=== PATIENT | male | born 1990 | race Caucasian/White ===

== ENCOUNTER 2020-11-01 13:05 | Outpatient (REF) | payer OTHER, SELFPAY | END 2020-11-01 13:06 | disposition home or self-care (01) | LOC: HO.LAB 13:05 | PROVIDERS: PCP Physician Assistant; Visit Provider Internal Medicine | DX: Z20.822 Contact with and (suspected) exposure to COVID-19 (principal) | CPT/HCPCS: 36415; C9803; U0003 ==

== ENCOUNTER 2020-12-24 11:06 | Outpatient (REF) | payer OTHER, SELFPAY | END 2020-12-24 11:07 | disposition home or self-care (01) | LOC: HO.LAB 11:06 | PROVIDERS: Visit Provider Internal Medicine | DX: Z20.822 Contact with and (suspected) exposure to COVID-19 (principal) | CPT/HCPCS: 36415; C9803; U0003; U0005 ==

== ENCOUNTER 2021-02-01 10:31 | Outpatient (REF) | payer OTHER, SELFPAY ==
[2021-02-01 11:49] LABS: COVID-19 Test Negative (Negative)
== END 2021-02-01 10:32 | disposition home or self-care (01) ==
LOC: HO.LAB 10:31
PROVIDERS: Visit Provider Internal Medicine
DX: Z20.822 Contact with and (suspected) exposure to COVID-19 (principal)
CPT/HCPCS: 36415; 87635; C9803

== ENCOUNTER 2021-06-03 23:11 | Inpatient (IN) | payer OTHER, SELFPAY ==
[2021-06-03 23:58] VITALS: BMI 26.4
[2021-06-04] VITALS: BP 135/72; PULSE 62; RESP 21; TEMP 36.3; O2SAT 100
--- NOTE | 2021-06-04 | ECG_ITS ---
Test Reason : QTC PROLONG MEDS Blood Pressure : / mmHG Vent. Rate : 054 BPM Atrial Rate : 054 BPM P-R Int : 120 ms QRS Dur : 086 ms QT Int : 414 ms P-R-T Axes : 023 070 022 degrees QTc Int : 392 ms Sinus bradycardia Otherwise normal ECG No previous ECGs available Referred By: Cassi Cline Electronically Signed By:KRISTAL KELLY
[2021-06-04 00:02] VITALS: BMI 25.6
[2021-06-04] MEDS: Melatonin 3 MG TABLET 6 MG PO ×2 (00:41→22:00)
[2021-06-04] MEDS: traZODone HCL 50 MG TABLET PO ×2 (00:41→22:00)
[2021-06-04 00:45] VITALS: BP 115/59; PULSE 50; RESP 18; TEMP 37.1; O2SAT 100
[2021-06-04 00:47] VITALS: BP 115/59; PULSE 50
[2021-06-04] MEDS: cloNIDine HCL 0.1 MG TABLET PO ×2 (00:47→14:06)
--- NOTE | 2021-06-04 01:39 | PC.ADMIT ---
Pt. admitted to [facility] at 0000 on 06/04/2021 from [facility]. Pt. signed a CV. Pt. admitted with a diagnosis of Major Depressive Disorder. Pt. reports he is here to get help with opiate addiction. Pt. was prescribed painkillers following left ACL surgery in 2019. Pt. continued buying percocet on the street after prescription was finished. Pt. reports he would like to stop taking the medication. He has attended the suboxone clinic at [facility] but reports he does not wish to go on suboxone again. Pt. presented with mildly anxious mood and affect. He was calm and cooperative throughout admission. Pt. reported positive s/sx of withdrawal including restlessness, mild diaphoresis and generalized body aches. Pt. denied nausea but reports vomiting in the ER. Pt. medicated with clonidine, trazodone and melatonin. Pt. denied SI, HI, AH and VH. Pt. does not have any acute or chronic medical issues. He does not follow with outpatient psychiatric providers. Pt. contracts for safety. He is resting quietly in his room.
[2021-06-04] MEDS: Ondansetron ODT 4 MG TAB.RAPDIS TRANSLINGU ×2 (02:15→12:30)
[2021-06-04] MEDS: Magnesium Hydrox/Alum Hydrox 30 ML ORAL.SUSP PO ×2 (04:41→12:28)
[2021-06-04] MEDS: LORazepam 1 MG TABLET PO ×3 (04:41→14:06)
[2021-06-04 05:02] VITALS: BP 147/79; PULSE 66; RESP 16; TEMP 35.8; O2SAT 99
--- NOTE | 2021-06-04 12:02 | P.HPPS_ITS ---
HPI Chief Complaint: Major Depressive D/O Sources of Information: patient interviewed, chart reviewed and crisis/core team assessment reviewed HPI Subjective Notes: Small Warning and Conditional Voluntary Narrative: Pt is a 31 yo male with hx of intermittent substance abuse which evolved into prescription pain medication addiction and resulted in depression and Si who presents for worsening depression and SI. Pt reports that prior to October 2019, he was w/out hx of anxiety or depression. He abused cocaine and alcohol and sometimes prescription pain medications, but this was intermittent and never daily. He had ACL surgery in Oct 2019 and was prescribed percocet which he admits to over using, enjoying the calm, peaceful feeling it bestowed. Pt's script was stopped in jun 2020 and he went into withdraw, unable to sleep, eat, or work due to becoming nauseus, sweating, vomiting and with diarrhea. Pt thus bought Oxy from the street. Over the next year his addiction grew and he often outspent his paycheck buying pills. Pt had to get 2nd and 3rd jobs in [employer] to pay rent and hid his addiction from his . This constant chasing after pills, hiding and lying, working exhausting hours birthed a depression that grew over the subsequent months. Pt would sometimes not be able to buy his children a happy meal needing the extra $4 for drug money. He started feeling anxious, worried about all the people he now owed, falling deeper into debt again to fuel his drug habit. Pt felt guilty, had trouble sleeping, concentrating, low motivation, low energy and eventually on/off passive SI. This past week his depressed feelings increased and for the first time he felt there was no way out and SI increased, to point of considering making a plan (did not graduate to intent). Ultimately his kids were a powerful protective factor and SI resolved. His mother found him sleeping in his car, suspecting he'd become addicted to drugs, and brought him to [facility] where she works. Patient reports all SI remains resolved and he knows he will never hurt himself. He is eager to stay sober and is grateful that he no longer has to hide his addiction from family who is supportive. Pt has chronic back pain that triggers desire for pain meds and he would like to get back on Suboxone. Pt was once on it for 2 weeks by PCP (still hiding this from ) but said it made him nauseus since he always swallowed the saliva that accumlated. Needle Molder explained how to take suboxone and to spit out saliva buildup after 15 minutes. Needle Molder also discussed the need to get into a supportive environment such as AA/NA and how other casual drug and alcohol use will likely always lead back to addiction. Discussed insomnia and pt would like to tray trazodone (inspector automatic typewriter informed of risks/side-effects). Pt does not want medication for depression or anxiety saying it's fully resolved now that addiction is being dealt with. Pt denies hx of sofy and denies hx of trauma. 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 Substance History: etoh, cocaine, oxy on/off for years; never daily until percocet' Trauma History: denies Diagnostics Vital Signs (24Hr): Vital Signs - 24 hr 06/04/21 00:00 06/04/21 00:45 06/04/21 00:47 Temperature 97.4 F 98.7 F Pulse Rate 62 50 50 Respiratory Rate 21 H 18 Blood Pressure 135/72 115/59 L 115/59 L Pulse Oximetry 100 100 06/04/21 05:02 Temperature 96.4 F L Pulse Rate 66 Respiratory Rate 16 Blood Pressure 147/79 H Pulse Oximetry 99 Body Mass Index 25.6 Meds/Allergies Allergies Allergies Allergy/AdvReac Type Severity Reaction Status Date / Time No Known Allergies Allergy Verified 06/03/21 23:58 Mental Status Exam Mental Status Exam Patient Appearance: Well Grooomed and Appropriate Patient Orientation: Person, Place, Time and Situation Level of Consciousness: Awake and Appropriate Patient Behavior: Appropriate, Cooperative and Good Eye Contact Mood Description: Calm Affect Description: Calm Patient Cognition Impaired: No Ability to Follow Directions: Good Speech Pattern: Clear and Appropriate Memory Description: Intact Hallucinations: None Delusions: Not Present Thought Process: Intact, Goal Oriented and Linear Thought Content: positive for Intact and positive for Logical Judgement: Fair Assessment & Plan Assessment & Plan (1) MDD (major depressive disorder), recurrent episode, moderate: Status: Acute Code(s): F33.1 - Major depressive disorder, recurrent, moderate (2) Cocaine abuse: Status: Acute Code(s): F14.10 - Cocaine abuse, uncomplicated (3) Alcohol abuse: Status: Acute Code(s): F10.10 - Alcohol abuse, uncomplicated Assessment and Plan: impression: Pt is a 31 yo male with hx of intermittent substance abuse which evolved into prescription pain medication addiction and resulted in depression and Si who presents for worsening depression and SI.? depression has abated and pt is in good mood, future oriented, relieved to be open about addiction and optimistic about recover all SI resolved and remains so; he denies any hx of self harm pt reports w/drawal nearly over; he wants to get on suboxone for addiction and pain management. He does not want meds for anxiety/depression saying it was fueled by addiction and is now resolved pt hopes for quick discharge saying he needs to get back to work plan: cv q15 minm checks start suboxone 2mg; will give another 2 if tolerates referall to subxone clinic trazodone for sleep Reason for continued inpatient stay Substantial Risk for: stable for discharge
[2021-06-04] MEDS: Milk of Magnesia 30 ML ORAL.SUSP PO (12:28)
--- NOTE | 2021-06-04 12:46 | PC.NURSE ---
Patient experiencing nausea and vomiting due to withdrawal for opioids. Patient states he is doing better now on day 3 . Medicated for nausea and vomiting. Pt states he responds well to MOM and Odansetron. Resting comfortably in bed at the present time.
[2021-06-04 14:06] VITALS: BP 111/62; PULSE 66
[2021-06-04] MEDS: Buprenorphine/Naloxone 2/0.5mg FILM 1 FILM SUBLINGUAL ×2 (16:47→19:52)
[2021-06-04 21:10] VITALS: BP 114/76; PULSE 59; TEMP 36.6
[2021-06-04] MEDS: hydrOXYzine HCL 25 MG TABLET 50 MG PO (22:01)
[2021-06-05 06:31] VITALS: BP 151/85; PULSE 86; RESP 16; O2SAT 100
--- NOTE | 2021-06-05 12:55 | P.CNHOSGPS_ITS ---
History of Present Illness Data of Consult Service Date: 06/05/21 Primary Care Provider: Unknown Physician HPI Reason for consult: medical evaluation 31 year old male with no past medical history who is presently admitted to inpatient Psych for opioid dependence and depression. 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 He says he feels much better and think he's ready to go home. Review of Systems Review of Systems: Gen: no fever Resp: no sob, no cough CV: no chest, no HERNANDEZ, no leg edema GI: No n/v, no abd pain Neuro: No confusion Yes all other systems are reviewed and are negative [facility] Medical History (Updated 06/05/21 @ 13:07 by Shaquille Brar MD) Opioid dependence Social History Household Members: Spouse, Family and Children Housing: House Do you presently have visiting nurse or other home services: No Patient Tobacco Use Status: Current everyday Tobacco user Tobacco use type: Cigarette Cigarette Packs Per Day: 1 Cigarettes Per Day: 20.0 Years Smoked: 18 Smoked in Last 30 Days: Yes e-Cigarette/Vaping Use: Never Used Patient Interested in Nicotine Replacement: Yes Patient Given Instructions on How to Stop Smoking: Yes Date Education Initiated: 06/04/21 Second Hand Smoke Exposure: No Use of substances other than those prescribed or required for medical reasons: Yes Substance Use Type: Opiates and Painkillers Substance Use Frequency: Chronic Longstanding Last Used Substance: Days (ago) Currently Displaying Signs/Symptoms of Drug Intoxication Withdrawal: No Any prior treatment program specific to substance use: Yes (Pt. has participated briefly in outpatient program and suboxone clinic.) Have you been hit, kicked, punched, or otherwise hurt by someone within the past year? If so, by whom?: No Do you feel safe in your current relationship?: Yes Is there a partner from a previous relationship who is making you feel unsafe now?: No Are you made to feel afraid or neglected: No Advance Directives: No Advance Directives Information Provided: Yes Advance Directives on File: No Do you have thoughts of harming others: None Do you have a plan to hurt others: No Plan Recently lost weight without trying: No Eating poorly because of decreased appetite: No Nutrition Risks: No Nutritional Risk Poor oral hygiene: No service: No Sexual orientation: Straight/Heterosexual Meds Allergies Allergy/AdvReac Type Severity Reaction Status Date / Time No Known Allergies Allergy Verified 06/03/21 23:58 Active Medications: Current Medications Generic Name Dose Route Start Last Admin Trade Name Freq PRN Reason Stop Dose Admin Acetaminophen 650 mg 06/03/21 23:58 Acetaminophen 325 Mg Tablet PO Q6H PRN Headache/Pain Mild Scale (1-3) Al Hydroxide/Mg Hydroxide 30 ml 06/03/21 23:58 06/04/21 12:28 Magnesium Hydrox/Alum Hydrox 30 Ml Oral.Susp PO 30 ml Q6H PRN Administration Heartburn/Nausea Clonidine HCl 0.1 mg 06/04/21 00:10 06/04/21 14:06 Clonidine Hcl 0.1 Mg Tablet PO 0.1 mg TID PRN Administration Opiate Withdrawal Protocol Hydroxyzine HCl 50 mg 06/04/21 00:14 06/04/21 22:01 Hydroxyzine Hcl 25 Mg Tablet PO 50 mg BEDTIME PRN Administration Anxiety Loperamide HCl 2 mg 06/04/21 14:54 Loperamide Hcl 2 Mg Capsule PO Q4H PRN Loose Stool Magnesium Hydroxide 30 ml 06/03/21 23:58 06/04/21 12:28 Milk Of Magnesia 30 Ml Oral.Susp PO 30 ml DAILY PRN Administration Constipation Melatonin 6 mg 06/04/21 21:00 06/04/21 22:00 Melatonin 3 Mg Tablet PO 6 mg BEDTIME EDMUND Administration Nicotine 21 mg 06/04/21 09:00 06/05/21 08:30 Nicotine 21 Mg Patch.Td24 TRANSDERMA Not Given DAILY EDMUND Nicotine Polacrilex 4 mg 06/04/21 00:10 Nicotine Polacrilex 2 Mg Gum BUCCAL Q2H PRN Nicotine Cravings Ondansetron HCl 4 mg 06/04/21 00:10 06/04/21 12:30 Ondansetron Odt 4 Mg Tab.Rapdis TRANSLINGU 4 mg Q6H PRN Administration Nausea Trazodone HCl 50 mg 06/03/21 23:58 06/04/21 22:00 Trazodone Hcl 50 Mg Tablet PO 50 mg BEDTIME PRN Administration Insomnia Home Medications Medication Instructions Recorded Confirmed Last Taken Type No Known Home Meds 06/04/21 06/04/21 Unknown History Assessment and Plan (1) Opioid dependence: Status: Acute 31 year old male with opioid dependence... no active med issues. Continue ongoing. Physical Exam Vital Signs: Last Vital Signs Temp 97.9 F 06/04/21 21:10 Pulse 86 06/05/21 06:31 Resp 16 06/05/21 06:31 BP 151/85 H 06/05/21 06:31 Pulse Ox 100 06/05/21 06:31 Body Mass Index 25.6 Constitutional Awake and Alert, No apparent distress HEENT anicteric Neck Supple, No lymphadenopathy Cardiovascular RRR, No M/R/G, S1 S2, No S3 S4, No pedal edema Respiratory Lungs clear, No respiratory distress Gastrointestinal Non tender, Non-distended Skin No rash Neurological Alert & oriented x3 Psychological Appropriate affect Neuro Cranial nerves: Yes CN's II-XII intact bilaterally
--- NOTE | 2021-06-05 14:28 | P.DS_ITS ---
DS: Providers Provider Date of Service: 06/05/21 Date of admission: 06/03/21 23:11 Date of discharge: 06/05/21 Primary care physician: Unknown Physician Attending physician on admission: Ellis Macario Consults: 06/03/21 23:58 Consult to Hospitalist Routine Consulting Provider: Hospitalist Reason For Exam: new admission Attending physician on discharge: Ellis Macario DS: Diagnosis Discharge Diagnosis (1) MDD (major depressive disorder), recurrent episode, moderate: Status: Acute (2) Opioid dependence: Status: Acute (3) Cocaine abuse: Status: Acute (4) Alcohol abuse: Status: Acute DS: Medications Discharge Medications Home Medications: Home Medications Medication Instructions Recorded Confirmed No Known Home Meds 06/04/21 06/04/21 Mental Status Exam Mental Status Exam Narrative: Patient Appearance:?Well Grooomed and Appropriate Patient Orientation:?Person, Place, Time and Situation Level of Consciousness:?Awake and Appropriate Patient Behavior:?Appropriate, Cooperative and Good Eye Contact Mood Description:? good Affect Description:?Calm, congruent Patient Cognition Impaired:?No Ability to Follow Directions:?Good Speech Pattern:?Clear and Appropriate Memory Description:?Intact Hallucinations:?None Delusions:?Not Present Thought Process:?Intact, Goal Oriented and Linear Thought Content:?positive for Intact and positive for Logical Judgement:?Fair DS: Summary Hospital Course Hospital Course: Pt is a 31 yo male with hx of intermittent substance abuse which evolved into prescription pain medication addiction and resulted in depression and Si who presents for worsening depression and SI.? On admission, depression had fully resolved and pt was in good mood, future oriented, relieved to be open about addiction and optimistic about recovery all SI had resolved and remained so; he denies any hx of self harm pt reports w/drawal complete and he wants to get on suboxone for addiction and pain management and has intake tomorrow. He does not want meds for anxiety/depression saying it was fueled by addiction and is now resolved. Pt's mother visited unit and is supportive. He is returning to his supportive and children and is future oriented getting back to work to support his family and planning to pursue tx as an outpt. He is in good mood and reports SI fully resolved. While patient is vulnerable to relapse and seems to minimize the risks, thinking himself strong enough to stay sober, pt is not in imminent risk for harm to self or others and does not require inpatient admission for treatment which is appropriate to be continued as an outpatient. Pt's request for discharge honored. Time spent discussing smoking cessation with patient: 3 to 10 minutes Status at Discharge Functional status at discharge: independent ambulation Overall status at discharge: patient is back to baseline Time Spent with Patient Time attestation: Total time spent providing and/or coordinating discharge services: Discharge Plan Discharge Patient Disposition: Home, Self-Care Discharge Diagnosis: Mdd, recurrent, moderate in full remission Referrals: [facility] [Other] - 06/10/21 1:30 pm ([facility] Counselor (Frida Reagan)) [facility] [Other] - 06/06/21 1:00 pm (Initial evaluation for MAT (suboxone)) Discharge Medications: New trazodone 50 mg Tablet 50 mg PO BEDTIME PRN (Reason: Insomnia) 30 Days Qty: 30 RF: 0 Discharge Orders: Discharge Order (Routine); Ordered 06/05/21 Ordered By: Ellis Macario Diet: regular diet Activity on Discharge: As tolerated Stand Alone Forms: Patient Portal Discharge page, Community Support Care Plan Goals: Maintain mood and safe behaviors Continue to pursue sobriety Practice coping skills Continue with outpatient providers and reach out to them as needed Health Concerns: Mood stability and behaviors Substance abuse Chronic Back pain Plan of Treatment: Follow up with your PCP and psychiatric provider regarding above concerns Follow up with Suboxone clinic Assessment: Risk assessment at time of discharge: Patient was interviewed prior to discharge and found to be fully oriented and without any SI or HI. Patient has insight and demonstrates good judgment in terms of wanting to pursue treatment. Patient is not in imminent risk of harm to self or others and has a safety plan that includes presenting to the closest ER or calling 911 if feeling unsafe. Patient has been observed closely by nursing and unit staff throughout admission; patient has not engaged in any behaviors that suggest dangerousness to self or others and has demonstrated appropriate behaviors and impulse control. Discharge Date/Time: 06/05/21 15:23
== END 2021-06-05 15:23 | disposition home or self-care (01) | DRG 751 ==
PROVIDERS: Admitting Provider Psychiatry & Neurology Psychiatry; Visit Provider Psychiatry & Neurology Psychiatry
DX: F33.1 Major depressive disorder, recurrent, moderate (principal); R45.851 Suicidal ideations; F11.20 Opioid dependence, uncomplicated; F10.10 Alcohol abuse, uncomplicated; F14.10 Cocaine abuse, uncomplicated; F17.210 Nicotine dependence, cigarettes, uncomplicated; Z71.6 Tobacco abuse counseling
CPT/HCPCS: 93005

== ENCOUNTER → 2021-06-06 13:02 | Outpatient (BNVA) | payer OTHER, SELFPAY | PROVIDERS: Visit Provider Nurse Practitioner Psychiatric/Mental Health | DX: F11.20 Opioid dependence, uncomplicated (principal); Z51.81 Encounter for therapeutic drug level monitoring; Z79.899 Other long term (current) drug therapy | CPT/HCPCS: 80305 ==

== ENCOUNTER 2021-06-13 14:39 | Outpatient (REF) | payer OTHER, SELFPAY ==
[2021-06-13 16:24] LABS: Fentanyl, urine POSITIVE (Not Detect)
[2021-06-16 08:14] LABS: Buprenorphine 3
[2021-06-16 08:16] LABS: Norbuprenorphine 14
[2021-06-16 08:17] LABS: Naloxone NEGATIVE
== END 2021-06-13 14:40 | disposition home or self-care (01) ==
LOC: HO.LAB 14:39
PROVIDERS: PCP Physician Assistant; Visit Provider Nurse Practitioner Psychiatric/Mental Health
DX: F11.99 Opioid use, unspecified with unspecified opioid-induced disorder (principal); Z79.899 Other long term (current) drug therapy
CPT/HCPCS: 80305; 80307; 80348; 80362

== ENCOUNTER → 2021-06-20 14:28 | Outpatient (BNVA) | payer OTHER, SELFPAY | PROVIDERS: Visit Provider Nurse Practitioner Psychiatric/Mental Health | DX: F11.99 Opioid use, unspecified with unspecified opioid-induced disorder (principal); F10.20 Alcohol dependence, uncomplicated; F14.10 Cocaine abuse, uncomplicated; F33.1 Major depressive disorder, recurrent, moderate; F17.210 Nicotine dependence, cigarettes, uncomplicated; Z51.81 Encounter for therapeutic drug level monitoring | CPT/HCPCS: 80305 ==

== ENCOUNTER 2023-04-16 13:32 | Outpatient (REF) | payer MEDICAID, SELFPAY ==
--- NOTE | ~2023-04-16 | XR_ITS ---
EXAMINATION: XR KNEE, RIGHT CLINICAL INFORMATION: Pain. COMPARISON: None available. TECHNIQUE: AP, lateral and tunnel views of the right knee. FINDINGS: No fracture or joint effusion. Alignment is anatomic. Joint spaces are maintained. No abnormal soft tissue calcification. XR/XR knee LT 3V IMPRESSION: Normal right knee. EXAMINATION: XR KNEE, LEFT CLINICAL INFORMATION: Pain. COMPARISON: None available. TECHNIQUE: AP, lateral and tunnel views of the left knee. FINDINGS: There has been a prior ACL repair. No fracture or dislocation. There is a small to moderate joint effusion. Alignment is anatomic. Joint spaces are maintained. There are degenerative calcifications of the quadriceps tendon. IMPRESSION: 1. No fracture or dislocation is seen. 2. There is a small to moderate joint effusion. 3. There has been a prior ACL repair.
--- NOTE | ~2023-04-16 | XR_ITS ---
EXAMINATION: XR LUMBOSACRAL SPINE WITH OBLIQUES CLINICAL INFORMATION: Chronic lower back pain. COMPARISON: None available. TECHNIQUE: AP, both oblique, and lateral views of the lumbar spine. Lateral view of the lumbosacral junction. FINDINGS: Vertebral body heights and alignment are normal. At L4-L5, there is moderate disc space narrowing, with vacuum phenomenon. At L5-S1, there is marked disc space narrowing, with vacuum phenomenon. There is anterior spondylosis at L4-L5 and L5-S1. No acute fracture or spondylolisthesis is seen. The posterior elements are intact. There is bilateral facet arthropathy at L5-S1. The paravertebral soft tissues are unremarkable. XR/XR lumbar spine 4V min IMPRESSION: 1. There is moderate degenerative disc disease at L4-L5, and marked degenerative disc disease is seen at L5-S1. 2. There is anterior spondylosis at L4-L5 and L5-S1. 3. There is bilateral facet arthropathy at L5-S1.
--- NOTE | ~2023-04-16 | XR_ITS ---
EXAMINATION: XR KNEE, RIGHT CLINICAL INFORMATION: Pain. COMPARISON: None available. TECHNIQUE: AP, lateral and tunnel views of the right knee. FINDINGS: No fracture or joint effusion. Alignment is anatomic. Joint spaces are maintained. No abnormal soft tissue calcification. XR/XR knee RT 3V IMPRESSION: Normal right knee. EXAMINATION: XR KNEE, LEFT CLINICAL INFORMATION: Pain. COMPARISON: None available. TECHNIQUE: AP, lateral and tunnel views of the left knee. FINDINGS: There has been a prior ACL repair. No fracture or dislocation. There is a small to moderate joint effusion. Alignment is anatomic. Joint spaces are maintained. There are degenerative calcifications of the quadriceps tendon. IMPRESSION: 1. No fracture or dislocation is seen. 2. There is a small to moderate joint effusion. 3. There has been a prior ACL repair.
== END 2023-04-16 13:33 | disposition home or self-care (01) ==
LOC: HO.HHCX 13:32
PROVIDERS: Visit Provider Family Medicine
DX: M25.561 Pain in right knee (principal); M25.562 Pain in left knee; M54.9 Dorsalgia, unspecified
CPT/HCPCS: 72110; 73562

== ENCOUNTER 2023-05-21 11:58 | Outpatient (REF) | payer MEDICAID, SELFPAY ==
[2023-05-21 14:47] LABS: Alanine Aminotransferase 22 U/L (0-40); Albumin Level 4.5 g/dL (3.5-5.0); Alkaline Phosphatase 101 U/L (39-117); Anion Gap 16 (12-20); Aspartate Amino Transferase 54 U/L (5-37); Bilirubin Total 0.4 mg/dL (0.0-1.0); Blood Urea Nitrogen 21 mg/dL (9-16); Carbon Dioxide 23 mmol/L (22-29); Chloride 106 mmol/L (96-108); Estimated Glomerular Filt Rate > 60; Glucose Random 80 mg/dL (60-115); Potassium 4.1 mmol/L (3.3-5.1); Sodium 141 mmol/L (135-145); Total Protein 7.8 g/dL (6.5-8.0)
[2023-05-21 14:49] LABS: Cholesterol 138 mg/dL; HDL Cholesterol 42 mg/dL; LDL Cholesterol Calculated 84 mg/dl; Triglycerides 61 mg/dL
[2023-05-21 18:09] LABS: CT PCR NOT DETECTED (Not Detect.); NG PCR NOT DETECTED (Not Detect.)
[2023-05-21 21:35] LABS: Reflex LDLD? No
[2023-05-22 05:08] LABS: Syphilis Screen Nonreactive (Nonreactive)
[2023-05-22 05:37] LABS: HBS Num1 297.36 mIU/mL (0-7.99); HBc Num1 0.08 S/CO (0.00-0.79); HBsAGNum1 0.42 S/CO (0.00-0.99); HIV AB/AG Nonreactive (Nonreactive); HIV Num 1 0.05 S/CO (0.00-0.99); Hepatitis B Core Antibody Nonreactive (Nonreactive); Hepatitis B Surface Antigen Negative (Negative); ~Hepatitis B Surface Antibody REACTIVE (Nonreactive)
[2023-05-22 05:42] LABS: ~HepC Num1 0.13 S/CO (0.00-0.79); ~Hepatitis C Antibody Nonreactive (Nonreactive)
[2023-05-22 05:46] LABS: Hepatitis A Antibody IgG Nonreactive (Nonreactive); ~Hepatitis A Antibody IgG 0.28 S/CO (0.00-0.99)
== END 2023-05-21 11:59 | disposition home or self-care (01) ==
LOC: HO.HHCL 11:58
PROVIDERS: Visit Provider Family Medicine
DX: Z11.4 Encounter for screening for human immunodeficiency virus [HIV] (principal); Z11.3 Encounter for screening for infections with a predominantly sexual mode of transmission; R03.0 Elevated blood-pressure reading, without diagnosis of hypertension
CPT/HCPCS: 0353U; 80053; 80061; 86704; 86706; 86708; 86780; 86803; 87340; 87389

== ENCOUNTER 2023-05-27 14:00 | Outpatient (RCR) | payer MEDICAID, SELFPAY | END 2023-07-13 10:54 | disposition home or self-care (01) | LOC: HO.OT 14:00 | PROVIDERS: PCP Family Medicine; Visit Provider Family Medicine | DX: S68.113D Complete traumatic metacarpophalangeal amputation of left middle finger, subsequent encounter (principal); S68.111D Complete traumatic metacarpophalangeal amputation of left index finger, subsequent encounter | CPT/HCPCS: 97110; 97140; 97166 ==

== ENCOUNTER 2023-09-14 17:49 | Outpatient (REF) | payer MEDICAID, SELFPAY ==
--- NOTE | ~2023-09-14 | MR_ITS ---
EXAMINATION: MR KNEE WITHOUT CONTRAST, LEFT CLINICAL INFORMATION: Left knee pain and effusion. Swelling, numbness, lump/mass. Prior anterior cruciate ligament reconstruction and meniscal repair. COMPARISON: Left knee radiographs dated 04/16/2023. TECHNIQUE: MRI of the left knee without contrast was performed using routine sequences on a high-field scanner. FINDINGS: MENISCI: Medial Meniscus: Mild inner margin fraying/tearing of the posterior horn. Linear increased T2 signal within the intrasubstance of the posterior horn which appears to contact the periphery of the tibial articular surface (sagittal image 8/28), consistent with a focal tear. Lateral Meniscus: Postsurgical artifact adjacent to the posterior horn. Linear areas of oblique increased T2 signal within the posterior horn contacting the inner third of the femoral articular surface as well as the central aspect of the tibial articular surface, likely representing postsurgical change versus nondisplaced tearing. Correlation with surgical history is recommended. LIGAMENTS: Cruciate: Postsurgical change consistent with anterior cruciate ligament reconstruction. The ligament graft is intact. Intact posterior cruciate ligament. Cyst associated with the posterior cruciate ligament measuring up to 2.6 cm in craniocaudal dimension, consistent with a cruciate cyst. Collateral: Intact. EXTENSOR MECHANISM: Small superior and inferior patellar enthesophytes. Intact quadriceps and patellar tendons. Normal patellofemoral alignment. ARTICULAR CARTILAGE/BONE: Patellofemoral Compartment: Mild patellar articular cartilage signal heterogeneity. Central trochlea signal heterogeneity and fissuring. Tiny marginal osteophytes. Medial Compartment: Mild weightbearing articular cartilage signal heterogeneity with tiny marginal osteophytes. Lateral Compartment: Articular cartilage signal heterogeneity and mild surface irregularity with posterolateral tibial plateau subchondral cystic change. Tiny marginal osteophytes. JOINT FLUID AND BURSAE: No significant joint effusion. MR/MR knee LT wo con IMPRESSION: 1. Inner margin fraying/tearing of the medial meniscus posterior horn with a focal peripheral tibial articular surface tear. 2. Postsurgical artifact adjacent to the posterior horn of the lateral meniscus. Linear areas of increased T2 signal within the posterior horn contacting the femoral articular surface and tibial articular surface, likely representing postsurgical change versus nondisplaced tearing. Correlation with surgical history is recommended. 3. Anterior cruciate ligament reconstruction with an intact graft. Posterior cruciate ligament cyst. 4. Mild tricompartmental osteoarthritis. No significant joint effusion.
== END 2023-09-14 17:50 | disposition home or self-care (01) ==
LOC: HO.MRI 17:49
PROVIDERS: PCP Family Medicine; Visit Provider Family Medicine
DX: M25.562 Pain in left knee (principal)
CPT/HCPCS: 73721

== ENCOUNTER 2023-10-26 14:07 | Outpatient (AMB) | payer MEDICAID, SELFPAY ==
--- NOTE | 2023-10-26 14:09 | A.OFFVIS_ITS ---
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 History of ACL Repair in December of 2018 at [facility]. Patient reports pain had been consistent but has increased in March of 2023 with unknown cause. 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 He had an ACL reconstruction about 5 years ago. He now describes pain throughout the day that prevents him from returning to his prior level of activity. He describes difficulty standing from a seated position and constant dull pain. He has medial and lateral knee pain but it is not sharp and not associated with twisting activities. He has no swelling and only rare episodes of giving way. [facility] Medical History (Updated 10/27/23 @ 12:05 by Artis Garcia MD) Alcohol abuse Cocaine abuse MDD (major depressive disorder), recurrent episode, moderate Opioid dependence Surgical History (Updated 10/27/23 @ 12:05 by Artis Garcia MD) History of repair of anterior cruciate ligament of left knee (~12/2018) Social History Household Members: Spouse, Family and Children Housing: House Do you presently have visiting nurse or other home services: No Patient Tobacco Use Status: Current everyday Tobacco user Tobacco use type: Cigarette Cigarette Packs Per Day: 1 Cigarettes Per Day: 20.0 Years Smoked: 18 e-Cigarette/Vaping Use: Never Used Second Hand Smoke Exposure: No Substance Use Type: Opiates and Painkillers service: No Sexual orientation: Straight/Heterosexual Physical Exam Vital Signs: BMI result Body Mass Index 26.1 Extrem Other: 1+ Bk/ant drawer with neg pivot shift and firm endpoint No joint line tenderness and neg Steinmen's TTP retropatellar lateral facet + Patellar crepitus Results Reviewed Results Reviewed: I personally reviewed the MR images. 1. Inner margin fraying/tearing of the medial meniscus posterior horn with a focal peripheral tibial articular surface tear. 2. Postsurgical artifact adjacent to the posterior horn of the lateral meniscus. Linear areas of increased T2 signal within the posterior horn contacting the femoral articular surface and tibial articular surface, likely representing postsurgical change versus nondisplaced tearing. Correlation with surgical history is recommended. 3. Anterior cruciate ligament reconstruction with an intact graft. Posterior cruciate ligament cyst. 4. Mild tricompartmental osteoarthritis. No significant joint effusion. Assessment & Plan Assessment & Plan (1) S/P ACL reconstruction: Code(s): Z98.890 - Other specified postprocedural states Plan: Stable graft. Most of his pain is anterior and associated with PF joint. NO evidence of symptomatic meniscal involvement (2) Osteoarthritis of patellofemoral joint: Code(s): M17.10 - Unilateral primary osteoarthritis, unspecified knee Plan: PF. Mild. Plan is to increase activity as tolerated and strengthening. Coding Level of Care Code New Pt Level 4 (18205) Diagnoses S/P ACL reconstruction Z98.890 Osteoarthritis of patellofemoral joint M17.10
[2023-10-26 14:16] VITALS: BMI 26.1
== END 2023-10-26 15:24 | disposition home or self-care (01) ==
PROVIDERS: PCP Family Medicine; Visit Provider Orthopaedic Surgery
DX: M17.12 Unilateral primary osteoarthritis, left knee (principal)
CPT/HCPCS: 99202

== ENCOUNTER → 2023-10-26 14:07 | Outpatient (BNVA) | payer MEDICAID, SELFPAY | PROVIDERS: PCP Family Medicine; Visit Provider Orthopaedic Surgery | DX: M17.10 Unilateral primary osteoarthritis, unspecified knee (principal); Z98.890 Other specified postprocedural states | CPT/HCPCS: 99202 ==

== ENCOUNTER 2023-10-30 10:29 | Outpatient (AMB) | payer MEDICAID, SELFPAY ==
--- NOTE | 2023-10-30 10:35 | MHC.OFFVIS ---
Intake Vital Signs 10/30/23 10:41 Height 6 ft 5 in Weight 220 lb BMI 26.1 Intake Visit Reasons: newprob- LT hand pain Intake Note: Marco a 33 year old left hand dominant male presents today for an evaluation of left hand, DOI 12/20/22. 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 ED same day. He had his MF and IF amputated on 12/25/22 due to injury. Currently most of his pain is in his MF and RF, that will get worse with cold weather as well as numbness. He uses prosthetic fingers that will cause discomfort and swelling. Allergies No Known Allergies Allergy (Verified 10/30/23 10:50) HPI newprob- LT hand pain HPI Details 33-year-old left hand dominant male who presents to the office today for evaluation of left-hand pain s/p accident with a liquid waste treatment plant operator causing her hand to get stuck, 12/20/22 and was seen at [facility] ED the same day. He had his middle and index finger amputated on 12/25/22 due to the injury. He currently states he has pain in his middle and ring finger which is aggravated with cold weather. He also c/o numbness in his hand. He uses prosthetic fingers which cause him discomfort and swelling. [facility] Medical History (Updated 11/02/23 @ 21:06 by Grace Ocampo PA-C) Alcohol abuse Cocaine abuse MDD (major depressive disorder), recurrent episode, moderate Opioid dependence Surgical History History of repair of anterior cruciate ligament of left knee (~12/2018) Social History Household Members: Spouse, Family and Children Housing: House Do you presently have visiting nurse or other home services: No Patient Tobacco Use Status: Current everyday Tobacco user Tobacco use type: Cigarette Cigarette Packs Per Day: 1 Cigarettes Per Day: 20.0 Years Smoked: 18 e-Cigarette/Vaping Use: Never Used Second Hand Smoke Exposure: No Substance Use Type: Opiates and Painkillers service: No Sexual orientation: Straight/Heterosexual Review of Systems Const All systems reviewed & are unremarkable except as noted in HPI and below Physical Exam Vital Signs: BMI result Body Mass Index 26.1 Extrem Other: Left hand: Normal to inspection. Prosthesis intact, amputation of the middle and index finger at the level of PIP joint. Ring finger is held in flexed position. 45 degrees of flexion at PIP and in attempt to make a close fist. Ring finger flexion 90 degrees at MCP, 80 degrees at PIP and 45 degrees at DIP. Hypersensitivity in the hand throughout the ring finger and along the distal end of the middle and index finger. Positive Tinel?s. pulses are intact. Results Reviewed Results Reviewed: Xrays were obtained in the office today and personally reviewed by me of the left hand show amputation at the level of the proximal phalanx Assessment & Plan Assessment & Plan (1) Left hand pain: Code(s): M79.642 - Pain in left hand (2) Left hand paresthesia: Code(s): R20.2 - Paresthesia of skin (3) Amputation of left hand: Code(s): S68.412A - Complete traumatic amputation of left hand at wrist level, initial encounter Qualifiers: Encounter type: initial encounter Qualified Code(s): S68.412A - Complete traumatic amputation of left hand at wrist level, initial encounter Plan We had a lengthy discussion about options which include continued occupational therapy and prosthesis. I explained that with fluctuation of tissue swelling of the amputated fingers, he is likely to have continued discomfort with the prosthesis which is why he should take offs and rest time to time. I did discuss the benefits of EMG nerve conduction study which I did order today to help the etiology of his neuropathic pain to determine the next step in his treatment. He is content with this plan and will follow-up as discussed. Orders: Orders XR hand LT min 3V 10/30/23 M79.642 - Pain in left hand NE electromyogram (EMG) 10/30/23 R20.0 - Anesthesia of skin, R20.2 - Paresthesia of skin NE nerve conduction velocity 10/30/23 R20.0 - Anesthesia of skin, R20.2 - Paresthesia of skin Patient Instructions: Scribed for Grace Ocampo PA-C, by Luis Ramírez medical field representative, on 10/30/2023 at 10:30 AM EST. IGrace PA-C, have personally reviewed and agree with the information entered by the scribe. Coding Level of Care Code New Pt Level 3 (35392) Diagnoses Left hand pain M79.642 Left hand paresthesia R20.2 Amputation of left hand, initial encounter S68.412A Encounter type: initial encounter
[2023-10-30 10:41] VITALS: BMI 26.1
== END 2023-10-30 11:23 | disposition home or self-care (01) ==
PROVIDERS: PCP Family Medicine; Visit Provider Physician Assistant
DX: S68 Traumatic amputation of wrist, hand and fingers (principal); M79.642 Pain in left hand; R20.2 Paresthesia of skin
CPT/HCPCS: 99203

== ENCOUNTER 2023-10-30 10:40 | Outpatient (REF) | payer MEDICAID, SELFPAY ==
--- NOTE | ~2023-10-30 | XR_ITS ---
EXAMINATION: XR HAND, LEFT CLINICAL INFORMATION: Left hand pain COMPARISON: None available. TECHNIQUE: PA, lateral, and oblique views of the left hand. FINDINGS: Second and third proximal phalangeal amputations are seen without suspicious bony or soft tissue findings. Alignment and articulations are maintained. No fracture, dislocation or active erosive bony process. No focal soft tissue swelling. XR/XR hand LT min 3V IMPRESSION: Second and third digit amputations. No acute bony pathology.
== END 2023-10-30 10:41 | disposition home or self-care (01) ==
LOC: HO.HOSX 10:40
PROVIDERS: Visit Provider Physician Assistant
DX: S68.113A Complete traumatic metacarpophalangeal amputation of left middle finger, initial encounter (principal); S68.111A Complete traumatic metacarpophalangeal amputation of left index finger, initial encounter; R20.2 Paresthesia of skin
CPT/HCPCS: 73130; 99212

== ENCOUNTER 2023-11-04 13:30 | Outpatient (RCR) | payer MEDICAID, SELFPAY | END 2023-11-18 11:21 | disposition home or self-care (01) | LOC: HO.OT 13:30 | PROVIDERS: PCP Family Medicine; Visit Provider Family Medicine | DX: S68.113A Complete traumatic metacarpophalangeal amputation of left middle finger, initial encounter (principal); S68.111A Complete traumatic metacarpophalangeal amputation of left index finger, initial encounter | CPT/HCPCS: 97110; 97140; 97166; 97530 ==

== ENCOUNTER 2023-12-24 17:45 | Outpatient (REF) | payer MEDICAID, SELFPAY ==
[2023-12-24 18:00] LABS: Amphetamine Screen Urine Not Detected (Not Detect); Barbiturates, Urine Not Detected (Not Detect); Benzodiazepines Screen Urine POSITIVE (Not Detect); Cannabinoid Screen Urine POSITIVE (Not Detect); Cocaine Screen Urine Not Detected (Not Detect); Fentanyl, urine POSITIVE (Not Detect); Opiate Screen Urine POSITIVE (Not Detect); Phencyclidine Screen Urine Not Detected (Not Detect)
[2023-12-30 11:33] LABS: Fentanyl, Ur >500.0 (H); Norfentanyl, Ur >500.0 (H)
== END 2023-12-24 17:46 | disposition home or self-care (01) ==
LOC: HO.HHCLNP 17:45
PROVIDERS: Visit Provider Family Medicine
DX: M54.9 Dorsalgia, unspecified (principal); G89.29 Other chronic pain
CPT/HCPCS: 80307; 80354

== ENCOUNTER 2024-01-22 10:27 | Outpatient (REF) | payer MEDICAID, SELFPAY | END 2024-01-22 10:28 | disposition home or self-care (01) | LOC: HO.SH 10:27 | PROVIDERS: Visit Provider Nurse Practitioner Primary Care | DX: Z01.118 Encounter for examination of ears and hearing with other abnormal findings (principal); H90.3 Sensorineural hearing loss, bilateral | CPT/HCPCS: 92557; 92567 ==

== ENCOUNTER 2024-02-16 10:02 | Outpatient (REF) | payer MEDICAID, SELFPAY ==
--- NOTE | 2024-02-16 10:04 | EMG_ITS ---
Bilateral median and ulnar motor and sensory studies were performed. Bilateral radial sensory studies were performed and paraspinal muscles were tested with a needle. IMPRESSION: 1. 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 2. [id number] right ulnar neuropathy across cubital tunnel. 3. Left ulnar sensory neuropathy. MD SERVANDO Murphy/STEPHANIE / [id number]
--- NOTE | 2024-02-16 10:04 | EMG_ITS ---
Left median and ulnar motor and sensory studies were performed. Left radial sensory and median and lateral antecubital brachial sensory studies were performed. The needle examination was performed. IMPRESSION: This is an unremarkable study with no evidence of entrapment neuropathy or a proximal lesion. MD SERVANDO Murphy/STEPHANIE / [id number]
== END 2024-02-16 10:03 | disposition home or self-care (01) ==
LOC: HO.NEURO 10:02
PROVIDERS: PCP Family Medicine; Visit Provider Physician Assistant
DX: R20.0 Anesthesia of skin (principal); R20.2 Paresthesia of skin
CPT/HCPCS: 95886; 95910

== ENCOUNTER 2024-03-22 09:57 | Outpatient (REF) | payer MEDICAID, SELFPAY ==
[2024-03-22 12:09] LABS: MANUAL DIFF FLAG NO
[2024-03-22 12:19] LABS: Basophils Percent Auto 0.3 % (0-2); Eosinophils Absolute Auto 0.1 X10*3/uL (0.0-0.4); Eosinophils Percent Auto 2.1 % (0-4); Hematocrit 39.7 % (42.0-52.0); Hemoglobin 12.8 g/dl (14.0-18.0); Imm Gran Abs Auto 0.01 X10*3/uL (0.00-0.03); Imm Gran Pct Auto 0.3 % (0.0-0.4); Lymphocytes Absolute Auto 1.3 X10*3/uL (1.2-4.9); Lymphocytes Percent Auto 33.9 % (20-40); Mean Corpuscular HGB Conc 32.2 g/dl (31.0-36.0); Mean Corpuscular Hemoglobin 28.2 pg (27.0-33.0); Mean Corpuscular Volume 87.4 fL (80.0-98.0); Mean Platelet Volume 10.9 fL (9.4-12.4); Monocytes Absolute Auto 0.4 X10*3/uL (0.1-1.2); Monocytes Percent Auto 10.3 % (2-11); Neutrophils Percent Auto 53.1 % (45-73); Platelet Count 163 X10*3/uL (160-400); Red Blood Count 4.54 X10*6/uL (4.60-5.80); Red Cell Distribution Width 13.9 % (11.0-16.0); White Blood Count 3.8 X10*3/uL (4.8-10.8)
[2024-03-22 12:53] LABS: Syphilis Screen Nonreactive (Nonreactive)
[2024-03-22 12:54] LABS: HBsAGNum1 0.36 S/CO (0.00-0.99); HIV AB/AG Nonreactive (Nonreactive); HIV Num 1 0.06 S/CO (0.00-0.99); Hepatitis B Surface Antigen Negative (Negative); ~HepC Num1 0.13 S/CO (0.00-0.79); ~Hepatitis C Antibody Nonreactive (Nonreactive)
[2024-03-22 12:55] LABS: Alanine Aminotransferase 10 U/L (0-40); Albumin Level 4.1 g/dL (3.5-5.0); Alkaline Phosphatase 96 U/L (39-117); Anion Gap 11 (12-20); Aspartate Amino Transferase 14 U/L (5-37); Bilirubin Total 0.2 mg/dL (0.0-1.0); Blood Urea Nitrogen 11 mg/dL (9-16); Calcium 9.8 mg/dL (8.4-10.2); Carbon Dioxide 30 mmol/L (22-29); Chloride 105 mmol/L (96-108); Estimated Glomerular Filt Rate > 60; Glucose Random 72 mg/dL (60-115); Potassium 4.5 mmol/L (3.3-5.1); Sodium 141 mmol/L (135-145); Total Protein 7.1 g/dL (6.5-8.0)
[2024-03-22 12:57] LABS: Vitamin D 25-OH Total 32.6 ng/mL (>30)
[2024-03-22 14:04] LABS: CT PCR NOT DETECTED (Not Detect.); NG PCR NOT DETECTED (Not Detect.)
[2024-03-26 17:24] LABS: Testosterone, Total 299 ng/dL (250-1100)
== END 2024-03-22 09:58 | disposition home or self-care (01) ==
LOC: HO.HHCL 09:57
PROVIDERS: Visit Provider Family Medicine
DX: R63.4 Abnormal weight loss (principal); N52.9 Male erectile dysfunction, unspecified; F11.20 Opioid dependence, uncomplicated; Z11.3 Encounter for screening for infections with a predominantly sexual mode of transmission
CPT/HCPCS: 0353U; 36415; 80053; 82306; 84403; 85025; 86780; 86803; 87340; 87389

== ENCOUNTER 2024-04-29 17:59 | Outpatient (REF) | payer MEDICAID, SELFPAY ==
[2024-04-29 18:36] LABS: Amphetamine Screen Urine Not Detected (Not Detect); Barbiturates, Urine Not Detected (Not Detect); Benzodiazepines Screen Urine Not Detected (Not Detect); Buprenorphine Scr Not Detected (Not Detect); Cannabinoid Screen Urine POSITIVE (Not Detect); Cocaine Screen Urine Not Detected (Not Detect); Methadone Screen, Urine Not Detected (Not Detect); Opiate Screen Urine POSITIVE (Not Detect); Oxycodone Screen Urine Not Detected (Not Detect); Phencyclidine Screen Urine Not Detected (Not Detect)
[2024-04-29 18:44] LABS: Fentanyl, urine POSITIVE (Not Detect)
== END 2024-04-29 18:00 | disposition home or self-care (01) ==
LOC: HO.CHCLNP 17:59
PROVIDERS: Visit Provider Family Medicine
DX: M54.9 Dorsalgia, unspecified (principal); G89.29 Other chronic pain; Z51.81 Encounter for therapeutic drug level monitoring
CPT/HCPCS: 80307

== ENCOUNTER 2024-05-04 13:39 | Outpatient (REF) | payer MEDICAID, SELFPAY | END 2024-05-04 13:40 | disposition home or self-care (01) | LOC: HO.HHCL 13:39 | PROVIDERS: Visit Provider Family Medicine | DX: Z02.89 Encounter for other administrative examinations (principal); Z11.1 Encounter for screening for respiratory tuberculosis | CPT/HCPCS: 36415; 86480; 86481 ==

== ENCOUNTER 2024-05-05 15:24 | Outpatient (REF) | payer MEDICAID, SELFPAY ==
--- NOTE | ~2024-05-05 | XR_ITS ---
EXAMINATION: XR KNEE, LEFT CLINICAL INFORMATION: Left knee pain while bending COMPARISON: 04/16/2023 TECHNIQUE: Four views of the left knee. FINDINGS: No fracture or destructive process. Mild medial joint space narrowing. Post ACL surgical repair defects noted. No fracture, dislocation or destructive process or joint effusion. XR/XR knee LT 4V IMPRESSION: No change. Electronically signed by: Nick Leyva MD 06/14/2024 08:05 AM EDT
== END 2024-05-05 15:25 | disposition home or self-care (01) ==
LOC: HO.HHCX 15:24
PROVIDERS: Visit Provider Internal Medicine
DX: M25.562 Pain in left knee (principal)
CPT/HCPCS: 73564

== ENCOUNTER 2024-06-10 10:45 | Outpatient (RCR) | payer MEDICAID, SELFPAY | END 2024-07-06 06:47 | disposition home or self-care (01) | LOC: HO.OT 10:45 | PROVIDERS: PCP Family Medicine; Visit Provider Orthopaedic Surgery | DX: S68.113D Complete traumatic metacarpophalangeal amputation of left middle finger, subsequent encounter (principal) | CPT/HCPCS: 97110; 97165 ==